=== PATIENT | female | born 1945 ===

== ENCOUNTER 2019-12-04 14:24 | Outpatient (CLI) | payer MEDICARE, MEDICAID, SELFPAY ==
[2019-12-04 14:42] LABS: Basophils Absolute Auto 0.1 K/mm3 (0.0-0.1); Basophils Percent Auto 0.6 % (0.2-1.2); Eosinophils Absolute Auto 0.2 K/mm3 (0-0.3); Eosinophils Percent Auto 2.1 % (0-4.4); Hematocrit 33.2 % (37.0-47.0); Hemoglobin 10.3 g/dL (12.0-15.0); Immature Granulocyte Absolute 0.05 K/mm3 (0.00-0.031); Immature Granulocyte Percent A 0.4 % (0-0.5); Immature Reticulocyte Fraction 15.4 % (3.0-15.9); Lymphocytes Absolute Auto 2.05 K/mm3 (0.9-3.2); Lymphocytes Percent Auto 17.7 % (18.3-44.2); Mean Corpuscular Hemoglobin 32.4 pg (26-34); Mean Corpuscular Volume 104.4 fl (80-100); Mean Platelet Volume 10.6 fl (7.4-10.4); Monocytes Absolute Auto 0.9 K/mm3 (0.1-0.6); Monocytes Percent Auto 7.6 % (2.6-8.5); Neutrophils Absolute Auto 8.3 K/mm3 (1.3-6.7); Neutrophils Percent Auto 71.6 % (45.5-73.1); Platelet Count Result 372 k/mm3 (150-375); Red Blood Count 3.18 M/mm3 (4.2-5.4); Red Cell Distribution Width 15.4 % (11.5-14.5); Reticulocyte Percent 2.51 % (0.7-4.3); Reticulocytes Absolute 0.08 B/L (32.2-175.7); White Blood Count 11.6 K/mm3 (4.5-10.0)
[2019-12-04 16:45] LABS: Iron 80 ug/dL (37-170)
[2019-12-04 16:54] LABS: Percent Iron Saturation 20 % (20-50)
[2019-12-04 21:17] LABS: Folic Acid 9.6 ng/mL (2.76->20)
== END 2019-12-04 14:25 | disposition home or self-care (01) ==
LOC: ANHLAB 14:29
PROVIDERS: PCP Internal Medicine; Visit Provider Internal Medicine Hematology & Oncology
DX: D64.9 Anemia, unspecified (principal)
CPT/HCPCS: 36415; 82607; 82728; 82746; 83540; 83550; 84443; 85025; 85046

== ENCOUNTER 2020-03-30 11:47 | Outpatient (CLI) | payer MEDICARE, MEDICAID, SELFPAY ==
[2020-03-30 12:03] LABS: Basophils Absolute Auto 0.1 K/mm3 (0.0-0.1); Basophils Percent Auto 0.6 % (0.2-1.2); Eosinophils Absolute Auto 0.3 K/mm3 (0-0.3); Eosinophils Percent Auto 3.2 % (0-4.4); Hematocrit 36.3 % (37.0-47.0); Hemoglobin 10.9 g/dL (12.0-15.0); Immature Granulocyte Absolute 0.04 K/mm3 (0.00-0.031); Immature Granulocyte Percent A 0.4 % (0-0.5); Lymphocytes Absolute Auto 2.22 K/mm3 (0.9-3.2); Lymphocytes Percent Auto 21.4 % (18.3-44.2); Mean Platelet Volume 10.4 fl (7.4-10.4); Monocytes Absolute Auto 0.9 K/mm3 (0.1-0.6); Monocytes Percent Auto 8.3 % (2.6-8.5); Neutrophils Absolute Auto 6.9 K/mm3 (1.3-6.7); Neutrophils Percent Auto 66.1 % (45.5-73.1); Platelet Count Result 253 k/mm3 (150-375); Red Blood Count 3.63 M/mm3 (4.2-5.4); Red Cell Distribution Width 13.9 % (11.5-14.5); Reticulocyte Hemoglobin Conten 32.9 pg (28.2-35.7); Reticulocyte Percent 2.22 % (0.7-4.3); Reticulocytes Absolute 0.08 B/L (32.2-175.7); White Blood Count 10.4 K/mm3 (4.5-10.0)
[2020-03-30 12:38] LABS: Iron 64 ug/dL (37-170)
[2020-03-30 12:49] LABS: Percent Iron Saturation 19 % (20-50)
[2020-03-30 13:46] LABS: Folic Acid 8.1 ng/mL (2.76->20)
== END 2020-03-30 11:48 | disposition home or self-care (01) ==
PROVIDERS: PCP Internal Medicine; Visit Provider Internal Medicine Hematology & Oncology
DX: D64.9 Anemia, unspecified (principal); D50.9 Iron deficiency anemia, unspecified; R53.83 Other fatigue
CPT/HCPCS: 36415; 82607; 82728; 82746; 83540; 83550; 84443; 85025; 85046

== ENCOUNTER 2021-08-14 08:21 | Emergency (ER) | payer MEDICARE, MEDICAID, SELFPAY ==
[2021-08-14] VITALS (40 sets, daily range): BP systolic 122–159; BP diastolic 37–81; PULSE 61–79; RESP 12–25; TEMP 36.5; O2SAT 97–100
--- NOTE | ~2021-08-14 | XR_ITS ---
EXAMINATION: XR chest 1V portable INDICATION: Shortness of breath TECHNIQUE: Portable AP chest at 0849 hours COMPARISON: None available FINDINGS: There are patchy bilateral airspace opacities. No pleural effusion or pneumothorax is ident ified. The heart size is upper limits of normal for technique. IMPRESSION: 1. Patchy bilateral airspace opacities, consistent with atelectasis versus pneumonia. Reviewed, dictated and finalized at location A. FRAME ASSEMBLER IMPRESSION: 1. Patchy bilateral airspace opacities, consistent with atelectasis versus pneu monia.
--- NOTE | 2021-08-14 08:28 | ECG_ITS ---
Measurements Intervals [place] Rate: 66 P: 65 KS: 268 QRS: 18 QRSD: 72 T: 65 QT: 390 QTc: 411 Interpretive Statements SINUS RHYTHM WITH FIRST DEGREE AV BLOCK LOW QRS VOLTAGE IN PRECORDIAL LEADS ANTEROSEPTAL INFARCT, AGE INDETERMINATE BORDERLINE ST-T WAVE ABNORMALITY- HIGH LATERAL LEADS BASELINE ARTIFACT- I, II, III, AVR, AVL, AVF ABNORMAL ECG Electronically Signed On 08-14-2021 9:29:52 ACADEMIC AFFAIRS COORDINATOR by Zeke Pérez D.O.
[2021-08-14 10:03] LABS: INR 1.4; Partial Thromboplastin Time 37.6 SECONDS (22.3-36.8); Prothrombin Time 16.8 Seconds (11.1-14.7)
[2021-08-14 10:05] LABS: Alanine Aminotransferase 17 U/L (4-35); Albumin Level 3.6 g/dL (3.5-5.1); Alkaline Phosphatase 93 U/L (38-126); Anion Gap 4 mmol/L (8-16); Aspartate Amino Transferase 24 U/L (14-36); Basophils Absolute Auto 0.1 K/mm3 (0.0-0.1); Basophils Percent Auto 0.5 % (0.2-1.2); Bilirubin,Total 0.4 mg/dL (0.2-1.3); Blood Urea Nitrogen 32 mg/dL (7-17); Calcium 9.5 mg/dL (8.4-10.2); Carbon Dioxide 33 mmol/L (22-30); Chloride 102 mmol/L (98-107); Eosinophils Absolute Auto 0.3 K/mm3 (0-0.3); Eosinophils Percent Auto 2.3 % (0-4.4); Estimated CRCL calculation 32 ml/min; Estimated Glomerular Filt Rate 29; Glucose 122 mg/dL (65-110); Hematocrit 36.8 % (37.0-47.0); Hemoglobin 11.3 g/dL (12.0-15.0); Immature Granulocyte Absolute 0.05 K/mm3 (0.00-0.031); Immature Granulocyte Percent A 0.4 % (0-0.5); Lymphocytes Absolute Auto 1.49 K/mm3 (0.9-3.2); Lymphocytes Percent Auto 11.5 % (18.3-44.2); Magnesium 2.3 mg/dL (1.6-2.3); Mean Corpuscular HGB Conc 30.7 g/dl (32-36); Mean Corpuscular Hemoglobin 30.6 pg (26-34); Mean Corpuscular Volume 99.7 fl (80-100); Mean Platelet Volume 10.2 fl (7.4-10.4); Monocytes Percent Auto 7.9 % (2.6-8.5); Neutrophils Percent Auto 77.4 % (45.5-73.1); Platelet Count Result 282 k/mm3 (150-375); Potassium 4.8 mmol/L (3.4-5.0); Red Blood Count 3.69 M/mm3 (4.2-5.4); Red Cell Distribution Width 16.7 % (11.5-14.5); Sodium 139 mmol/L (137-145)
[2021-08-14 10:06] LABS: D Dimer 0.76 ug/mL (<0.48)
[2021-08-14 10:19] LABS: NT Pro B Type Natriuretic Pept 2340 pg/mL (5-100); Troponin I 0.019 ng/mL (0.000-0.034)
[2021-08-14 10:42] LABS: Alveolar/Arterial O2 Gradient 87.2 mmHg; Base Excess ABG 2.7 mEq/l (+/-2.0); Fractional Inspired Oxygen 32 %; Oxygen Content ABG 15.8 %vol (16.0-22.0); Oxygen Saturation ABG 96.6 % (95.0-100.0); Oxyhemoglobin 95.5 % THb (90.0-100.0); PCO2 ABG 46.1 mmHg (35.0-45.0); PO2 FiO2 Ratio Arterial Blood 2.72 %; Total Hemoglobin 11.7 g/dL (12.0-18.0); pH ABG 7.401 (7.350-7.450)
[2021-08-14 10:43] LABS: Device NASAL CANNULA; Modified Allen's Test Pass; Site Drawn LEFT RADIAL
--- NOTE | 2021-08-14 11:19 | ED.SOB ---
HPI - SOB/Dyspnea General Chief Complaint: Shortness of Breath/Dyspnea Stated Complaint: SOB Time Seen by Provider: 08/14/21 08:43 Source: patient, EMS and RN notes reviewed Mode of arrival: EMS Limitations: no limitations History of Present Illness HPI Narrative: Patient presents with shortness of breath since yesterday. Got worse today. Patient on 2 L of oxygen by CPAP only at night. Patient also complaining of intermittent swelling of the lower extremities which is not different than before. Patient denies any fever, chills, nausea, vomiting, chest pain. Patient is not vaccinated for COVID-19. History of diabetes, hypertension, hyperlipidemia, congestive heart failure. Patient on Lasix 40 mg once every other day. Related Data Home Medications Medication Instructions Recorded Confirmed allopurinol 100 mg tablet 100 mg PO DAILY 08/22/19 05/19/21 carvedilol 12.5 mg tablet 12.5 mg PO Q12H 08/22/19 05/19/21 fluticasone 250 mcg-salmeterol 50 1 inhalation INHALATION BID 08/22/19 05/19/21 mcg/dose blistr powdr for inhalation rosuvastatin 10 mg tablet 10 mg PO DAILY 08/22/19 05/19/21 sucralfate 1 gram tablet 1 g PO DAILY 08/22/19 05/19/21 Ozempic 1 mg 03/24/21 03/24/21 Spiriva with HandiHaler 03/24/21 Tresiba U-100 Insulin 10 units 03/24/21 Vitamin D3 4,000 mcg 03/24/21 fluticasone furoate PRN 03/24/21 aspirin 81 mg PO DAILY 05/19/21 05/19/21 glimepiride 05/19/21 furosemide [Lasix] 40 PO EVERY OTHER DAY 08/14/21 Allergies Allergy/AdvReac Type Severity Reaction Status Date / Time iodine Allergy Unknown Verified 04/21/21 13:01 levofloxacin Allergy Unknown Verified 04/21/21 13:01 atorvastatin [From Lipitor] Allergy Verified 04/21/21 13:01 codeine Allergy Verified 04/21/21 13:01 Review of Systems Review of Systems: CONSTITUTIONAL: Denies fever, chills, or sweats. EYES: Denies visual changes, redness, or discharge. ENT: Denies rhinorrhea, congestion, sore throat, or otalgia. CARDIOVASCULAR: Denies chest pain, palpitations, or edema. RESPIRATORY: Denies cough or dyspnea. GASTROINTESTINAL: Denies abdominal pain, nausea, vomiting, or diarrhea. GENITOURINARY: Denies dysuria or hematuria. SKIN: Denies rash or itching. MUSCULOSKELETAL: Denies back pain, joint pain, or myalgia. NEUROLOGIC: Denies headache, numbness, or weakness. PSYCHIATRIC: Denies anxiety or depression. [facility] Family History Family History Father Family history of cardiovascular disease Mother Family history of cardiovascular disease Social History Social History Smoking packs per day: 1 Smoking cigarettes per day: 20.0 Years smoked: 50 Smoking pack-years: 50.00 Smoking status: Former smoker Tobacco type: cigarettes Smoking end date: 04/20/18 Spiritual care concerns: No Exam Narrative: General appearance: Well-developed, well-nourished Skin: Normal color, 1+ edema lower extremity bilaterally Head: Normocephalic, nontraumatic Eyes: Clear conjunctiva ENT: Oropharynx normal, ears normal, nose normal Neck: Supple, nontender Chest and respiratory: Airway patent, no respiratory distress, no accessory muscle use Heart: Regular rate/rhythm Abdomen: Soft, nontender, no organomegaly, quiet bowel sounds Vascular: Normal peripheral pulses, normal capillary refill. 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
[2021-08-14] MEDS: FUROSEMIDE INJ 40 MG/4 ML VIAL IV PUSH (11:47)
--- NOTE | 2021-08-14 13:03 | PC.NURSE ---
Informed pt that she is discharged, pt states her ride will be here in about an hour but they will not have her cpap oxygen tank with them, informed pt we do not have spare oxygen tanks for patients,pt insisted I ask the charge nurse, management trainer [place] aware and states family would have to bring cpap oxygen from home
[2021-08-15 20:04] LABS: SARS-CoV-2 RNA PCR Negative
== END 2021-08-14 13:17 | disposition home or self-care (01) ==
PROVIDERS: Emergency Provider Emergency Medicine; PCP Internal Medicine
DX: J18.9 Pneumonia, unspecified organism (principal); I50.9 Heart failure, unspecified; Z20.822 Contact with and (suspected) exposure to COVID-19; Z87.891 Personal history of nicotine dependence; Z79.82 Long term (current) use of aspirin; Z79.84 Long term (current) use of oral hypoglycemic drugs; I44.0 Atrioventricular block, first degree; R94.31 Abnormal electrocardiogram [ECG] [EKG]
CPT/HCPCS: 36415; 36600; 71045; 80053; 82805; 83735; 83880; 84484; 85025; 85380; 85610; 85730; 93005; 96374; 99284; C9803; J1940; U0003; U0005